=== PATIENT | male | born 1990 | race African-American/Black ===

== ENCOUNTER 2020-02-07 10:22 | Emergency (ER) | payer MEDICAID ==
[~2020-02-07] VITALS: Ht 175.3 cm; Wt 73.0 kg
[2020-02-07 11:14] LABS: CHLORIDE 105 mEq/L (98-107)
[2020-02-07 11:17] LABS: ETHANOL BLOOD < 10 mg/dL
[2020-02-07 11:18] LABS: BASOPHILS % 0.9 % (0.0-2.0); EOSINOPHILS % 1.9 % (0.0-5.0); HEMATOCRIT. 38.5 % (42.0-52.0); HEMOGLOBIN. 12.7 g/dL (14.0-18.0); LYMPHOCYTES % 30.9 % (20.0-50.0); MEAN CORPUSCULAR HEMOGLOBIN 29.2 pg (28.0-32.0); MEAN CORPUSCULAR VOLUME 88.4 fL (80.0-94.0); MEAN PLATELET VOLUME 7.8 fl (7.4-10.4); MONOCYTES % 6.3 % (2.0-8.0); PLATELET 199 x1000/uL (130-400); RED BLOOD CELL COUNT 4.35 mill/uL (4.7-6.1); RED CELL DISTRIBUTION WIDTH 14.1 % (11.6-14.6)
[2020-02-07 13:48] VITALS: BP 103/61
[2020-02-07] MEDS ORDERED: ACETAMINOPHEN 325MG TABLET PO PRN ×2 (14:45)
[2020-02-07] MEDS ORDERED: ONDANSETRON HCL 4MG/2ML INJ IV PRN (14:45)
[2020-02-07] MEDS ORDERED: NITROGLYCERIN 0.4MG TABLET SL SL PRN (14:45)
[2020-02-07] MEDS ORDERED: DOCUSATE SODIUM 100MG CAPSULE PO PRN (14:45)
[2020-02-07] MEDS ORDERED: CLONIDINE 0.1MG TABLET PO PRN (14:45)
[2020-02-07] MEDS ORDERED: MAGNESIUM/ALUMINUM HYDROXIDE/SIMETHICONE 30ML UDC PO PRN (14:45)
[2020-02-07] MEDS ORDERED: KETOROLAC 15MG/ML VIAL IV PRN (14:45)
[2020-02-07] MEDS ORDERED: IPRATROPIUM/ALBUTEROL 0.5-3(2.5)MG/3ML NEB NEB PRN (14:45)
[2020-02-07] MEDS ORDERED: GUAIFENESIN 200MG/10ML SUGAR FREE UDC PO PRN (14:45)
[2020-02-07] MEDS ORDERED: ZINC SULFATE 220 MG ( 50 ) CAPSULE PO SCH (15:00)
[2020-02-07] MEDS ORDERED: ENOXAPARIN 40MG/0.4ML SYR SUBCUT SCH (15:00)
[2020-02-07] MEDS ORDERED: ASCORBIC ACID 500 MG TABLET PO SCH (21:00)
[2020-02-07] MEDS ORDERED: ZOLPIDEM TARTRATE 5MG TABLET PO PRN (21:00)
[2020-02-07] MEDS ORDERED: FAMOTIDINE 20MG TABLET PO SCH (21:00)
== END 2020-02-07 15:53 | disposition home or self-care (01) ==
LOC: ER 10:22 → EDBD 10:22 → ER 15:53 → CANBEDREQ 20:04
DX: G93.49 Other encephalopathy (principal); E87.6 Hypokalemia; D64.9 Anemia, unspecified; F17.210 Nicotine dependence, cigarettes, uncomplicated; Z59.0 Homelessness
CPT/HCPCS: 36415; 71045; 80053; 80061; 80307; 80320; 80329; 82140; 83036; 85025; 93005; 99285; G0480

== ENCOUNTER 2020-11-18 10:41 | Emergency (ER) | payer MEDICAID ==
[~2020-11-18] VITALS: Ht 172.7 cm; Wt 75.0 kg
[2020-11-18 11:00] VITALS: BP 151/73
== END 2020-11-18 11:45 ==
LOC: ER 10:41
DX: Z02.89 Encounter for other administrative examinations (principal); F31.9 Bipolar disorder, unspecified
CPT/HCPCS: 99283

== ENCOUNTER 2022-11-01 03:27 | Emergency (ER) | payer MEDICAID ==
[~2022-11-01] VITALS: Ht 172.7 cm; Wt 77.0 kg
[2022-11-01 03:32] VITALS: BP 150/100; PULSE 108; RESP 16; TEMP 98.5; O2SAT 99
[2022-11-01] MEDS ORDERED: ACETAMINOPHEN 325MG TABLET PO ONE (03:45)
== END 2022-11-01 03:43 | disposition home or self-care (01) ==
LOC: ER 03:27
DX: M79.18 Myalgia, other site (principal)
CPT/HCPCS: 99283